=== PATIENT | female | born 1995 | race Two or more races ===

== ENCOUNTER → 2019-01-25 | Outpatient (CLI) | payer SELFPAY ==
--- NOTE | 2019-01-25 16:19 | RADIOLOGY REPORT (SQ) ---
EXAM DESCRIPTION: U/S OB 14+ TRNABD 1GES W/O DOP COMPLETED DATE/TIME: 01/25/2019 3:41 pm REASON FOR STUDY: Z34.02 ENCNTR FOR SUPRVSN OF NORMAL FIRST PREG, SECOND TRIMESTER Z34.02 ENCNTR FO R SUPRVSN OF NORMAL FIRST PREG, SECOND TRIME COMPARISON: None. TECHNIQUE: Static and Dynamic grayscale imaging performed of gravid uterus using transabdominal appr oach. Additional selected color Doppler and spectral images recorded. All stored on PACS. LIMITATIONS: None. FINDINGS: FETUSES SEEN:1 EGA: 17 week 2 day. Calculated using BPD,FL,HC,AC documented on images. Clinical dates 20 week 0 day . CATHERINE: 07/03/2019. EFW: 189 grams PERCENTILE: Not applicable. Fetus less than or equal to 20 weeks gestation. LILIAN: Largest pocket 2.4 cm. PLACENTA: Posterior. GRADE: I PRESENTATION: Transverse. ANATOMY: HEART RATE: 145 beats per minute. FOUR CHAMBER HEART: Poorly visualized. THREE VESSEL CORD: Yes. CORD INSERTION: Visualized. KIDNEYS AND BLADDER: Visualized. Appear normal. STOMACH: Visualized. Appears normal. SPINE: Normal as visualized. BRAIN AND LATERAL VENTRICLES: Lateral ventricles not seen. Normal brain as visualized. OTHER: No other significant finding. MATERNAL ADNEXA: Maternal ovaries not visualized. CERVICAL LENGTH: 3.7 cm. Closed. OTHER: No other significant finding. IMPRESSION: LIVING INTRAUTERINE . ESTIMATED GESTATIONAL AGE 17 WEEK 2 DAY. NO VISUALIZED ANOMALIES. Trimester of : Second trimester - 13 weeks 1 day to 27 weeks 6 days. TECHNICAL DOCUMENTATION: JOB ID: [id number] [employer]- All Rights Reserved Reading location - IP/workstation name: [email or web address]
== END ==
LOC: RAD 14:50
PROVIDERS: ATTEND Midwife
DX: Z34.02 Encounter for supervision of normal first pregnancy, second trimester (principal)
CPT/HCPCS: 76805

== ENCOUNTER 2019-07-03 15:53 | Inpatient (IN) | payer MEDICAID ==
[2019-07-03 16:37] LABS: APPEARANCE,URINE CLEAR; BILIRUBIN,URINE NEGATIVE (NEGATIVE); COLOR,URINE STRAW; GLUCOSE, URINE NEGATIVE (NEGATIVE); KETONES,URINE NEGATIVE (NEGATIVE); LEUKOCYTE ESTERASE,URINE NEGATIVE (NEGATIVE); NITRITE,URINE NEGATIVE (NEGATIVE); PROTEIN,URINE NEGATIVE (NEGATIVE); URINE SPECIFIC GRAVITY 1.004; UROBILINOGEN,URINE NEGATIVE mg/dL (<2.0)
[2019-07-03 17:05] LABS: URINE AMPHETAMINES SCREEN NEGATIVE; URINE BARBITURATES SCREEN NEGATIVE; URINE BENZODIAZEPINES SCREEN NEGATIVE; URINE COCAINE SCREEN NEGATIVE; URINE MARIJUANA (THC) SCREEN NEGATIVE; URINE METHADONE SCREEN NEGATIVE; URINE PHENCYCLIDINE SCREEN NEGATIVE
[2019-07-03 19:43] LABS: ABSOLUTE LYMPHOCYTES (AUTO) 1.6 10^3/uL (0.5-4.7); ABSOLUTE MONOCYTES (AUTO) 0.6 10^3/uL (0.1-1.4); ABSOLUTE NEUT (AUTO) 10.8 10^3/uL (1.7-8.2); BASOPHILS % (AUTO) 0.2 % (0-2); HEMATOCRIT 35.1 % (36.0-47.0); HEMOGLOBIN 12.6 g/dL (12.0-15.5); LYMPHOCYTES % (AUTO) 12.2 % (13-45); MEAN CORPUSCULAR HEMOGLOBIN 31.1 pg (27.0-33.4); MEAN CORPUSCULAR HGB CONC 35.9 g/dL (32.0-36.0); MEAN CORPUSCULAR VOLUME 87 fl (80-97); PLATELET COUNT 202 10^3/uL (150-450); RED BLOOD COUNT 4.05 10^6/uL (3.72-5.28); RED CELL DISTRIBUTION WIDTH 14.4 % (11.5-14.0); SEGMENTED NEUTROPHILS % (AUTO) 82.6 % (42-78); TOTAL CELLS COUNTED % (AUTO) 100 %; WHITE BLOOD COUNT 13.1 10^3/uL (4.0-10.5)
[2019-07-03] MEDS ORDERED: OXYTOCIN 10 UNIT/ML VIAL ONE (20:43)
[2019-07-03] MEDS ORDERED: OXYTOCIN/NORMAL SALINE 20 UNIT/1,000 ML RTUINJ ONE (20:43)
[2019-07-03] MEDS ORDERED: MISOPROSTOL 0.2 MG TABLET ONE (20:43)
[2019-07-03] MEDS ORDERED: LIDOCAINE 1% INJ-PF (10 MG/ML) 30 ML SDV ONE (20:43)
[2019-07-03] MEDS ORDERED: PSEUDOEPHEDRINE HCL 30 MG TABLET PO PRN (22:51)
[2019-07-03] MEDS ORDERED: OXYTOCIN/NORMAL SALINE 20 UNIT/1,000 ML RTUINJ IV PRN (22:51)
[2019-07-03] MEDS ORDERED: ZOLPIDEM TARTRATE 5 MG TABLET PO PRN (22:51)
[2019-07-03] MEDS ORDERED: PROMETHAZINE HCL 25 MG SUPP.RECT PR PRN (22:51)
[2019-07-03] MEDS ORDERED: GLYCERIN/WITCH HAZEL LEAF 1 EACH MED..WIPE TP PRN (22:51)
[2019-07-03] MEDS ORDERED: ACETAMINOPHEN 650 MG SUPP.RECT PR PRN (22:51)
[2019-07-03] MEDS ORDERED: DIBUCAINE 1% OINTMENT 28 GM TP PRN (22:51)
[2019-07-03] MEDS ORDERED: DIPH/PERTUSS(ACELL)/TETANUS VAC/PF 0.5 ML SYR (>=10YO) IM PRN (22:51)
[2019-07-03] MEDS ORDERED: PROMETHAZINE HCL INJ 25 MG/1 ML VIAL IV PRN (22:51)
[2019-07-03] MEDS ORDERED: PROMETHAZINE HCL 25 MG TABLET PO PRN (22:51)
[2019-07-03] MEDS ORDERED: MEASLES,MUMPS&RUBELLA VACC/PF 0.5 ML VIAL SUBCUT PRN (22:51)
[2019-07-03] MEDS ORDERED: NA PHOS,M-B/NA PHOS,DI-BA (ADULT) 133 ML ENEMA PR PRN (22:51)
[2019-07-03] MEDS ORDERED: MAGNESIUM HYDROXIDE SUSP 30 ML UDCUP PO PRN (22:51)
[2019-07-03] MEDS ORDERED: ACETAMINOPHEN WITH CODEINE #3 TABLET PO PRN ×2 (22:51)
[2019-07-03] MEDS ORDERED: BENZOCAINE/MENTHOL AEROSOL SPRAY 56 ML TOP PRN (22:51)
[2019-07-03] MEDS ORDERED: DIPHENHYDRAMINE HCL 25 MG CAPSULE PO PRN (22:51)
--- NOTE | 2019-07-03 22:58 | Admission Physical ---
Datetime Report Generated by CPN: 07/03/2019 22:58 CURRENT ADMISSION Chief Complaint: Uterine Contractions Indication for Induction: Not Applicable Admit Impression : Term, Intrauterine ; Active Labor Admit Plan: Admit to Unit; Initiate Labor Protocol ALLERGIES Medication Allergies: No Medication Allergies: No Known Allergies (07/03/2019) Latex: No Latex Allergies OBSTETRICAL HISTORY EDC: 07/03/2019 00:00 : 1 Para: 0 Gestational Diabetes: No Rh Sensitization: No Incompetent Cervix: No JENY: No Infertility: No ART Treatment: No Uterine Anomaly: No IUGR: No Hx Previous C/S: No Macrosomia: No Hx Loss/Stillborn: No PIH: No Hx : No Placenta Previa/Abruption: No Depression/PP Depression: No PTL/PROM: No Post Hemorrhage: No Current Procedures: Ultrasound Obstetrical History Comments: G1- current SEE RECORDS Alcohol: No Marijuana : No Cocaine: No Other Illicit Drugs: No Cigarettes: Never Smoker. [id number] MEDICAL HISTORY Diabetes: No Blood Transfusion: No Pulmonary Disease (Asthma, TB): No Breast Disease: No Hypertension: No Mop Man Surgery: No Heart Disease: No Hosp/Surgery: No Autoimmune Disorder: No Anesthetic Complications: No Kidney Disease: No Abnormal Pap Smear: No Neuro/Epilepsy: No Psychiatric Disorders: No Other Medical Diseases: No Hepatitis/Liver Disease: No Significant Family History: No Varicosities/Phlebitis: No Trauma/Violence : No Thyroid Dysfunction: No INFECTIOUS HISTORY Gonorrhea: No Genital Herpes: No Chlamydia: No Tuberculosis: No Syphilis: No Hepatitis: No HIV/AIDS Exposure: No Rash or Viral Illness: No HPV: No PHYSICAL EXAM General: Normal HEENT: Normal Neurologic: Normal Thyroid: Normal Heart: Normal Lungs: Normal Breast: Normal Back: Normal Abdomen: Normal Genitourinary Exam: Normal Extremities: Normal DTRs: Normal Pelvic Type: Adequate Vital Signs: Reviewed; Within Normal Limits VAGINAL EXAM Dilatation: 6 Effacement: 90 Station: 0 MEMBRANES Pooling: Positive Membranes: Ruptured FETUS A EGA: 40.0 Monitoring: External US FHR- Baseline: 140 Variability: Moderate 6-25bpm Accelerations: 15X15 Decelerations: None FHR Category: Category I Estimated Weight (gm): 3400 Presentation: Vertex PLANS FOR LABOR AND DELIVERY Labor and Delivery: None Pain Management: Natural Feeding Preference: Both Benefit of Breast Feed Discussed: Yes Circumcision: No INFORMED CONSENT Signature: with User ID: [email or web address]
[2019-07-03] MEDS ORDERED: FAMOTIDINE 20 MG TABLET PO ONE (23:30)
[2019-07-03] MEDS ORDERED: ACETAMINOPHEN WITH CODEINE #3 TABLET ONE (23:34)
--- NOTE | 2019-07-04 04:44 | Delivery Summary ---
Del Sum A-C Datetime Report Generated by CPN: 07/04/2019 04:44 DELIVERY PERSONNEL DELIVERY PERSONNEL: [id number] Delivery Doctor:: Inge Fox MD Labor and Delivery Nurse:: Mercedes Ulloa RN Corsetier:: Sarah Camarena RN Nursery Nurse:: Patsy Camarena RN Nursery Nurse:: Rufino Fernandez RN Senior Statistical Programmer/WIRE FENCE ERECTOR: Farida Fatima, ST MATERNAL INFORMATION Delivery Anesthesia: None Medications After Delivery: Pitocin Bolus-Please Comment Meds After Delivery Comment: Pitocin 20 units/1000 ml NSS Estimated Blood Loss (ml): 150 Delivery QBL: 150 Maternal Complications: None LABOR SUMMARY EDC: 07/03/2019 00:00 No. Babies in Womb: 1 Attempted: No Labor Anesthesia: None LABOR INFORMATION Reason for Induction: Not Applicable Onset of Labor: 07/03/2019 19:12 Complete Dilatation: 07/03/2019 22:23 Oxytocin: N/A Group B Beta Strep: Negative Antibiotics # of Doses: 0 MEMBRANES Membranes Rupture Method: Spontaneous Rupture of Membranes: 07/03/2019 21:33 Length of Rupture (hr): 1.05 Amniotic Fluid Color: Light Meconium Amniotic Fluid Amount: Small Amniotic Fluid Odor: Normal STAGES OF LABOR Stage 1 hr: 3 Stage 1 min: 11 Stage 2 hr: 0 Stage 2 min: 13 Stage 3 hr: 0 Stage 3 min: 3 Total Time in Labor hr: 3 Total Time in Labor min: 27 VAGINAL DELIVERY Episiotomy: None Laceration #1: None Laceration Extension #1: N/A Laceration Repair: Not Applicable Sponge Count Correct: N/A CSECTION DELIVERY Primary Indication: N/A Secondary Indication: N/A CSection Incidence: N/A Labor: N/A Elective: N/A CSection Incision: N/A BABY A INFORMATION Infant Delivery Date/Time: 07/03/2019 22:36 Method of Delivery: Vaginal Nurse Controlled Delivery: No Born in Route : No : N/A Forceps: N/A Vacuum Extraction: N/A Shoulder Dystocia : No PRESENTATION/POSITION BABY A Presentation: Cephalic Cephalic Presentation: Vertex Vertex Position: Right Occipital Anterior Breech Presentation: N/A PLACENTA INFORMATION BABY A Placenta Delivery Time : 07/03/2019 22:39 Placenta Method of Delivery: Spontaneous Placenta Status: Delivered SCORES BABY A Heart Rate 1 min: >100 bpm Resp Effort 1 min: Good Cry Reflex Irritability 1 min: Cough or Sneeze or Pulls Away Muscle Tone 1 min: Active Motion Color 1 min: Body [place], Extremities Blue Resuscitation Effort 1 min: Tactile Stimulation SCORE 1 MIN: 9 Heart Rate 5 min: >100 bpm Resp Effort 5 min: Good Cry Reflex Irritability 5 min: Cough or Sneeze or Pulls Away Muscle Tone 5 min: Active Motion Color 5 min: Body [place], Extremities Blue Resuscitation Effort 5 min: Tactile Stimulation SCORE 5 MIN: 9 INFANT INFORMATION BABY A Gestational Age at Delivery: 40.0 Gestational Status: Full Term- 39- 40.6 Weeks Outcome : Liveborn Condition : Stable Infant Sex: Male IDENTIFICATION BABY A Verification Date/Time: 07/03/2019 22:47 ID Band Number: [id number] Mother's Name Verified: Yes RN Verifying : , RN and SChase, RN WEIGHT/LENGTH BABY A Infant Birthweight (gm): 3240 Weight (lb): 7 Infant Weight (oz): 2 Infant Length (in): 22.00 Infant Length (cm): 55.88 CORD INFORMATION BABY A No. Cord Vessels: 3 Nuchal Cord : N/A Cord Blood Taken: Yes-For Eval (Mom's Blood Type - or O+) Suction: Mouth ASSESSMENT BABY A Infant Complications: None Physical Findings at Delivery: Within Normal Limits Infant Respirations: Appears Normal Shell Molder/ALS Called : No Infant Care By: Debbie Camarena RN Transferred To: Remains with Mother SIGNATURES Signature: with User ID: [email or web address]
[2019-07-04 08:09] LABS: HEMATOCRIT 32.9 % (36.0-47.0); HEMOGLOBIN 11.3 g/dL (12.0-15.5); MEAN CORPUSCULAR HEMOGLOBIN 30.3 pg (27.0-33.4); MEAN CORPUSCULAR HGB CONC 34.3 g/dL (32.0-36.0); MEAN CORPUSCULAR VOLUME 88 fl (80-97); PLATELET COUNT 215 10^3/uL (150-450); RED BLOOD COUNT 3.72 10^6/uL (3.72-5.28); RED CELL DISTRIBUTION WIDTH 14.3 % (11.5-14.0); WHITE BLOOD COUNT 14.3 10^3/uL (4.0-10.5)
--- NOTE | 2019-07-04 08:42 | PDOC PROGRESS REPORT ---
Subjective-OB Progress Note for:: 07/04/19 Subjective: reports bleeding slowing, pain controlled with current meds. denies needs. Physical Exam (OB) Vital Signs: Intake & Output 07/03/19 07/04/19 07/05/19 06:59 06:59 06:59 Weight 72.7 kg - Abdomen Description: Soft Hernia Present: No Fundal Description: Firm, Midline Fundal Height: u/u - u/2 - Abdominal Distension: No distension Tenderness: Nontender - Extremities Lower extremities: Tosha's sign - neg Calf: Normal, Nontender Objective-Diagnostic Laboratory: 07/04/19 07:26 07/03/19 07/03/19 07/03/19 16:02 19:25 19:25 WBC 13.1 H RBC 4.05 Hgb 12.6 Hct 35.1 L MCV 87 MCH 31.1 MCHC 35.9 RDW 14.4 H Plt Count 202 Seg Neutrophils % 82.6 H Urine Color STRAW Urine Appearance CLEAR Urine pH 7.0 Ur Specific [place] 1.004 Urine Protein NEGATIVE Urine Glucose (UA) NEGATIVE Urine Ketones NEGATIVE Urine Blood MODERATE H Urine Nitrite NEGATIVE Ur Leukocyte Esterase NEGATIVE Blood Type O NEGATIVE Antibody Screen NEGATIVE 07/04/19 07:26 WBC 14.3 H RBC 3.72 Hgb 11.3 L Hct 32.9 L MCV 88 MCH 30.3 MCHC 34.3 RDW 14.3 H Plt Count 215 Seg Neutrophils % Urine Color Urine Appearance Urine pH Ur Specific [place] Urine Protein Urine Glucose (UA) Urine Ketones Urine Blood Urine Nitrite Ur Leukocyte Esterase Blood Type Antibody Screen Assessment and Plan(PN) - Time Spent with Patient Time with patient: Less than 15 minutes - Disposition Anticipated Discharge: Home Within: within 24 hours
[2019-07-04] MEDS: FAMOTIDINE 20 MG TABLET PO SCH ×2 (10:05→21:29)
[2019-07-04] MEDS: IBUPROFEN 800 MG TABLET PO SCH ×3 (10:05→21:28)
[2019-07-04] MEDS: SENNOSIDES/DOCUSATE 8.6-50 MG 1 EACH TABLET PO SCH (10:07)
[2019-07-04] MEDS: DOCUSATE SODIUM 100 MG CAPSULE PO SCH ×2 (10:07→17:16)
[2019-07-04] MEDS: FERROUS SULFATE 325 MG TABLET PO SCH ×2 (10:07→17:16)
[2019-07-04] MEDS: PRENATAL VITAMIN W DHA CAPSULE PO SCH (10:07)
[2019-07-04] MEDS ORDERED: INFLUENZA QUAD (6MOS+) 2019-20 VAC 0.5 ML SYR IM ONE (21:46)
[2019-07-05] MEDS: IBUPROFEN 800 MG TABLET PO SCH ×2 (05:08→14:12)
[2019-07-05] MEDS: SENNOSIDES/DOCUSATE 8.6-50 MG 1 EACH TABLET PO SCH (10:52)
[2019-07-05] MEDS: PRENATAL VITAMIN W DHA CAPSULE PO SCH (10:52)
[2019-07-05] MEDS: FAMOTIDINE 20 MG TABLET PO SCH (10:52)
[2019-07-05] MEDS: FERROUS SULFATE 325 MG TABLET PO SCH (10:53)
[2019-07-05] MEDS: DOCUSATE SODIUM 100 MG CAPSULE PO SCH (10:53)
--- NOTE | 2019-07-05 11:08 | PDOC PROGRESS REPORT ---
Subjective-OB Progress Note for:: 07/05/19 Subjective: Doing well, no c/o, ready to go home, eating well, lao speaking, scant bleeding Physical Exam (OB) Vital Signs: Temp Pulse Resp BP Pulse Ox 98.0 F 84 18 122/63 99 07/05/19 07:15 07/05/19 07:15 07/05/19 07:15 07/05/19 07:15 07/05/19 07:15 Intake & Output 07/04/19 07/05/19 07/06/19 06:59 06:59 06:59 Intake Total 1020 Balance 1020 Weight 72.7 kg - Lochia Lochia Amount: Scant < 10 ml Lochia Color: Rubra/Red - Abdomen Description: Soft Hernia Present: No Fundal Description: Firm, Midline Fundal Height: u/u - u/2 Objective-Diagnostic Laboratory: 07/04/19 07:26 07/04/19 07:26 Blood Type O NEGATIVE Assessment and Plan(PN) - Assessment and Plan (1) Vaginal delivery Is this a current diagnosis for this admission?: Yes - Time Spent with Patient Time with patient: Less than 15 minutes Medications reviewed and adjusted accordingly: Yes - Disposition Anticipated Discharge: Home Within: within 24 hours
--- NOTE | 2019-07-05 11:12 | PDOC DISCHARGE SUMMARY ---
Impression - Admit/DC Date/PCP Admission Date/Primary Care Provider: 07/03/19 19: Discharge Date: 07/05/19 - Discharge Diagnosis (1) Vaginal delivery Is this a current diagnosis for this admission?: Yes - Additional Information Resuscitation Status: Full Code Discharge Diet: As Tolerated, Regular Discharge Activity: No Lifting Over 10 Pounds, Pelvic Rest Referrals: [facility] [Provider Group] Home Medications: Vits96/Iron Fum/Folic [ Tablet] 1 tab PO DAILY 07/03/19 HPI Gestational Age: 40 Reason(s) for Admission: Onset of Labor Procedures: NST, Ultrasound Intrapartum Procedure(s): Spontaneous Vaginal Delivery Hospital Course Hospital Course: routine PP Results Laboratory Results: WBC 14.3 10^3/uL (4.0-10.5) H 07/04/19 07:26 RBC 3.72 10^6/uL (3.72-5.28) 07/04/19 07:26 Hgb 11.3 g/dL (12.0-15.5) L 07/04/19 07:26 Hct 32.9 % (36.0-47.0) L 07/04/19 07:26 MCV 88 fl (80-97) 07/04/19 07:26 MCH 30.3 pg (27.0-33.4) 07/04/19 07:26 MCHC 34.3 g/dL (32.0-36.0) 07/04/19 07:26 RDW 14.3 % (11.5-14.0) H 07/04/19 07:26 Plt Count 215 10^3/uL (150-450) 07/04/19 07:26 Lymph % (Auto) 12.2 % (13-45) L 07/03/19 19:25 [place] % (Auto) 5.0 % (3-13) 07/03/19 19:25 Eos % (Auto) 0.0 % (0-6) 07/03/19 19:25 Baso % (Auto) 0.2 % (0-2) 07/03/19 19:25 Absolute Neuts (auto) 10.8 10^3/uL (1.7-8.2) H 07/03/19 19:25 Absolute Lymphs (auto) 1.6 10^3/uL (0.5-4.7) 07/03/19 19:25 Absolute Monos (auto) 0.6 10^3/uL (0.1-1.4) 07/03/19 19:25 Absolute Eos (auto) 0.0 10^3/uL (0.0-0.6) 07/03/19 19:25 Absolute Basos (auto) 0.0 10^3/uL (0.0-0.2) 07/03/19 19:25 Seg Neutrophils % 82.6 % (42-78) H 07/03/19 19:25 Urine Color STRAW 07/03/19 16:02 Urine Appearance CLEAR 07/03/19 16:02 Urine pH 7.0 (5.0-9.0) 07/03/19 16:02 Ur Specific [place] 1.004 07/03/19 16:02 Urine Protein NEGATIVE mg/dL (NEGATIVE) 07/03/19 16:02 Urine Glucose (UA) NEGATIVE mg/dL (NEGATIVE) 07/03/19 16:02 Urine Ketones NEGATIVE mg/dL (NEGATIVE) 07/03/19 16:02 Urine Blood MODERATE (NEGATIVE) H 07/03/19 16:02 Urine Nitrite NEGATIVE (NEGATIVE) 07/03/19 16:02 Urine Bilirubin NEGATIVE (NEGATIVE) 07/03/19 16:02 Urine Urobilinogen NEGATIVE mg/dL (<2.0) 07/03/19 16:02 Ur Leukocyte Esterase NEGATIVE (NEGATIVE) 07/03/19 16:02 Urine Ascorbic Acid NEGATIVE (NEGATIVE) 07/03/19 16:02 Urine Opiates Screen NEGATIVE 07/03/19 16:02 Urine Methadone Screen NEGATIVE 07/03/19 16:02 Ur Barbiturates Screen NEGATIVE 07/03/19 16:02 Ur Phencyclidine Scrn NEGATIVE 07/03/19 16:02 Ur Amphetamines Screen NEGATIVE 07/03/19 16:02 U Benzodiazepines Scrn NEGATIVE 07/03/19 16:02 Urine Cocaine Screen NEGATIVE 07/03/19 16:02 U Marijuana (THC) Screen NEGATIVE 07/03/19 16:02 RPR NONREACTIVE (NONREACTIVE) 07/03/19 19:25 Blood Type O NEGATIVE 07/04/19 07:26 Antibody Screen NEGATIVE 07/03/19 19:25 Screen NEGATIVE 07/04/19 07:26 Plan Health Concerns: routine Plan of Treatment: discharge home with baby, routine pp care Goals: no complications Time Spent: Less than 30 Minutes
[2019-07-05 11:13] VITALS: BP 122/73
[2019-07-05] MEDS ORDERED: MEDROXYPROGESTERONE ACET INJ 150 MG/1 ML VIAL IM ONE (12:00)
== END 2019-07-05 14:27 | disposition home or self-care (01) | DRG 807 ==
LOC: LC 15:53 → LR 19:20 → 2S 07-04 08:45
PROVIDERS: ADMIT Obstetrics & Gynecology; ATTEND Obstetrics & Gynecology
PROC: 10E0XZZ Delivery of Products of Conception, External Approach (ICD-10-PCS; principal; 2019-07-03)
PROC: 3E0234Z Introduction of Serum, Toxoid and Vaccine into Muscle, Percutaneous Approach (ICD-10-PCS; 2019-07-05)
PROC: 3E02340 Introduction of Influenza Vaccine into Muscle, Percutaneous Approach (ICD-10-PCS; 2019-07-05)
DX: O77.0 Labor and delivery complicated by meconium in amniotic fluid (principal); Z37.0 Single live birth; O26.893 Other specified pregnancy related conditions, third trimester; Z67.41 Type O blood, Rh negative; Z3A.40 40 weeks gestation of pregnancy; Z23 Encounter for immunization
CPT/HCPCS: 36415; 80307; 81005; 85025; 85027; 85461; 86592; 86850; 86900; 86901; 90686; 90715; J1050; J2590; J2790; J3490